=== PATIENT | male | born 2000 | race African-American/Black ===

== ENCOUNTER 2021-08-31 23:30 | Emergency (ER) | payer SELFPAY ==
[~2021-08-31] VITALS: Ht 167.6 cm; Wt 220.0 kg
[~2021-08-31 23:30] MED LIST: duoneb
[2021-08-31 23:45] VITALS: BP 137/75
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
== END 2021-09-01 00:05 ==
LOC: ER 23:30
DX: S60.512A Abrasion of left hand, initial encounter (principal); S60.511A Abrasion of right hand, initial encounter; J45.909 Unspecified asthma, uncomplicated; X58.XXXA Exposure to other specified factors, initial encounter; Y93.89 Activity, other specified; Y92.89 Other specified places as the place of occurrence of the external cause; Y99.8 Other external cause status
CPT/HCPCS: 99283